=== PATIENT | female | born 1995 | race Caucasian/White ===

== ENCOUNTER 2018-05-07 11:44 | Emergency (ER) | payer SELFPAY ==
[2018-05-07 12:05] VITALS: BP 113/98
--- NOTE | 2018-05-07 13:28 | UC ---
Jericho Spangler Stephanie, [facility] on 05/07/18 at 1315 . General HPI - HPI Summary HPI Summary: In Room Note: The pt is a 22 y/o F presenting to with c/o vomiting since . Symptoms include nausea, diaphoresis and heart burn. The pt denies fever, abd pain and diarrhea. The pt denies past hospitalization. MD Note: Vital signs stable. Afebrile, pulse ox 100. Visit hx non-contributory, on no medications, allergic to penicillin. Nurse Note: Symptoms began last night. Vomiting, sweats, heartburn. Temp this AM 96.5 as stated by patient. - History of Current Complaint Chief Complaint: UCGI Stated Complaint: VOMITING Time Seen by Provider: 05/07/18 12:57 Hx Obtained From: Patient Hx Last Menstrual Period: 05/03/18 Onset/Duration: Sudden Onset, Lasting Days - 1, Resolved Current Severity: Mild Pain Intensity: 0 Associated Signs & Symptoms: Positive: Diaphoresis, Nausea, Vomiting, Other - heartburn. Negative: Abdominal Pain, Diarrhea, Fever - Allergy/Home Medications Allergies/Adverse Reactions: Allergies Allergy/AdvReac Type Severity Reaction Status Date / Time Penicillins Allergy See Comment Verified 05/07/18 12:06 PMH/Surg Hx/FS Hx/Imm Hx Previously Healthy: Yes - Denies reflux. Other History Of: Negative For: HIV, Hepatitis B, Hepatitis C, Anticoagulant Therapy - Surgical History Surgical History: Yes Surgery Procedure, Year, and Place: Bilat ear surgeries withh tubes and plates. - Family History Known Family History: Positive: Hypertension, Diabetes Negative: Blood Disorder - Social History Occupation: Employed Part-time Lives: With Family Alcohol Use: Occasionally Substance Use Type: None Smoking Status (MU): Never Smoked Tobacco Have You Smoked in the Last Year: No Review of Systems Constitutional: Negative Skin: Other - diaphoresis Eyes: Negative ENT: Negative Respiratory: Negative Cardiovascular: Other - heartburn Gastrointestinal: Vomiting, Nausea Genitourinary: Negative Motor: Negative Neurovascular: Negative Musculoskeletal: Negative Neurological: Negative Psychological: Negative All Other Systems Reviewed And Are Negative: Yes Physical Exam - Summary Physical Exam Summary: Appearance: The patient is well-appearing, is in no pain distress, and is OBESE , COMFORTABLE Eyes: Conjunctiva are clear. ENT: The hearing is grossly normal, the pharynx is normal, and the TMs are normal. There is no muffled or hoarse voice. Neck: The neck is supple and there is no lymphadenopathy. Respiratory: The chest is nontender. RESPIRATORY CLEAR, there are normal breath sounds, and there is no respiratory distress. Cardiovascular: Heart is REGULAR RATE AND RHYTHM. There is no murmur. Abdomen: The abdomen is soft and nontender. There is no organomegaly. NEGATIVE CVA TENDERNESS Bowel sounds: PRESENT Musculoskeletal: Strength is intact. The patient moves all extremities. Neurological: The patient is alert. Psychological: The patient displays age appropriate behavior Skin: Negative for rashes. Triage Information Reviewed: Yes Vital Signs: Initial Vital Signs Temp 96.2 F 05/07/18 11:57 Pulse 94 05/07/18 11:57 Resp 18 05/07/18 11:57 BP 113/98 05/07/18 11:57 Pulse Ox 100 05/07/18 11:57 Vital Signs Reviewed: Yes Course/Dx - Course Course Of Treatment: Medications have been included in the original chart and reviewed. Patient is a relatively female who is obese, who has been suffering from heartburn and intermittent nausea and vomiting. Denies temperature or diarrhea. Examination is essentially normal. She has no abdominal pain. I treated. The differential is unclear. It may be a food reaction or a virus. It's possible that this is an environmental exposure although I doubt it. The patient has been instructed to simplify her diet today, take an antacid and sleep with her bed elevated, and take diphenhydramine for nausea. She knows that this may make her sleepy. She will call her doctor tomorrow for further evaluation as needed. - Differential Dx - Multi-Symptom Differential Diagnoses: Other - GERD Provider Diagnoses: Nausea/vomiting: unclear etiology. GERD, transient Discharge - Sign-Out/Discharge Documenting (check all that apply): Discharge/Admit/Transfer - Discharge Plan Condition: Stable Disposition: HOME Patient Education Materials: Antacid, Calcium Containing (By mouth), Gastroesophageal Reflux Disease (ED), Acute Nausea and Vomiting (ED) Referrals: Devante Gilmore MD [Primary Care Provider] - Additional Instructions: PLEASE SEEK CARE AT THE EMERGENCY DEPARTMENT IF SYMPTOMS WORSEN OR IF NEW SYMPTOMS DEVELOP. FOLLOW UP WITH YOUR PRIMARY CARE PHYSICIAN. As we discussed, this may be a virus causing her nausea. He also appeared to have too much acid in your esophagus. For the heartburn, if it happens again, take Mylanta. Sleep with your bed slightly elevated tonight. For the nausea and vomiting, simplify your diet over the next 1-2 days. No fried foods or dairy products. Code the drugstore and get Benadryl. Take 25 mg to 50 mg of Benadryl if you're feeling nauseous. This will make you sleepy. Go to the emergency department if you develop any abdominal pain or become dehydrated. Follow-up with your doctor tomorrow for further evaluation and treatment of heartburn, and intermittent nausea. - Billing Disposition and Condition Condition: STABLE Disposition: Home The documentation as recorded by the Jericho day Stephanie accurately reflects the service I personally performed and the decisions made by me, Vadim Main MD.
== END 2018-05-07 13:31 | disposition home or self-care (01) ==
LOC: UCEAST 11:44
DX: R11.2 Nausea with vomiting, unspecified (principal); K21.9 Gastro-esophageal reflux disease without esophagitis; R61 Generalized hyperhidrosis; Z88.0 Allergy status to penicillin; Z82.49 Family history of ischemic heart disease and other diseases of the circulatory system; Z83.3 Family history of diabetes mellitus
CPT/HCPCS: 99211; G0463

== ENCOUNTER 2019-03-03 17:20 | Emergency (ER) | payer SELFPAY ==
[2019-03-03 17:42] VITALS: BP 140/85
--- NOTE | 2019-03-03 18:11 | UC ---
Respiratory Complaint HPI - HPI Summary HPI Summary: C/O cough with wheezing x 4 days. Congestion with bilateral maxillary sinus pain. Ear pain as well. - History of Current Complaint Chief Complaint: UCRespiratory Stated Complaint: COUGH Hx Obtained From: Patient Hx Last Menstrual Period: 03/05/19 ?: No Onset/Duration: Sudden Onset, Lasting Days - 4, Worse Since - onset Severity Initially: Mild Severity Currently: Moderate Pain Intensity: 8 Character: Cough: Nonproductive Aggravating Factors: Deep Breaths, Recumbent Position Alleviating Factors: Nothing Associated Signs And Symptoms: Positive: Fever, Chills, Wheezing, URI, Nasal Congestion, Sinus Discomfort - Allergies/Home Medications Allergies/Adverse Reactions: Allergies Allergy/AdvReac Type Severity Reaction Status Date / Time Penicillins Allergy See Comment Verified 03/03/19 17:42 Home Medications: Home Medications Ibuprofen TAB* [Motrin TAB* 400 MG] 400 mg PO Q6HR PRN 03/03/19 [History Confirmed 03/03/19] PMH/Surg Hx/FS Hx/Imm Hx Previously Healthy: Yes Other History Of: Negative For: HIV, Hepatitis B, Hepatitis C, Anticoagulant Therapy - Surgical History Surgical History: Yes Surgery Procedure, Year, and Place: Bilat ear surgeries withh tubes and plates. - Family History Known Family History: Positive: Hypertension, Diabetes Negative: Cardiac Disease, Blood Disorder - Social History Occupation: Unemployed Lives: With Family Alcohol Use: Occasionally Substance Use Type: None Smoking Status (MU): Never Smoked Tobacco Have You Smoked in the Last Year: No Review of Systems All Other Systems Reviewed And Are Negative: Yes Constitutional: Positive: Fever, Chills, Fatigue ENT: Positive: Sore Throat, Nasal Discharge, Sinus Pain/Tenderness Respiratory: Positive: Shortness Of Breath, Cough Is Patient Immunocompromised?: No Physical Exam Triage Information Reviewed: Yes Appearance: No Pain Distress, Ill-Appearing, Obese Vital Signs: Initial Vital Signs Temp 98.2 F 03/03/19 17:37 Pulse 86 03/03/19 17:37 Resp 16 03/03/19 17:37 BP 140/85 03/03/19 17:37 Pulse Ox 98 03/03/19 17:37 Vital Signs Reviewed: Yes Eyes: Positive: Conjunctiva Clear ENT: Positive: Pharynx normal, Nasal congestion. Negative: TMs normal - left retracted. right obstructed by wax. Neck exam: Normal Respiratory: Positive: Wheezing - end inspiratory and expiratory wheezes. Cardiovascular Exam: Normal Musculoskeletal Exam: Normal Neurological Exam: Normal Psychological Exam: Normal Skin Exam: Normal Respiratory Course/Dx - Differential Dx/Diagnosis Differential Diagnosis/HQI/PQRI: Asthma, Lower Resp Infection, Sinusitis Provider Diagnosis: Upper respiratory infection with cough and congestion, Sinusitis, Bronchospasm , acute, Elevated blood pressure reading Discharge - Sign-Out/Discharge Documenting (check all that apply): Patient Departure All imaging exams completed and their final reports reviewed: No Studies - Discharge Plan Condition: Stable Disposition: HOME Prescriptions: Albuterol HFA INHALER* [Ventolin HFA Inhaler*] 2 puff INH Q4H PRN #1 mdi PRN Reason: Wheezing Amoxicillin PO (*) [Amoxicillin 875 MG (*)] 875 mg PO BID #20 tab predniSONE TAB* [Deltasone 20 MG TAB*] 60 mg PO DAILY #18 tab Patient Education Materials: Upper Respiratory Infection (ED), Wheezing (ED), Sinusitis (ED), Amoxicillin (By mouth), Prednisone (By mouth) Referrals: Devante Gilmore MD [Primary Care Provider] - Additional Instructions: NASAL SPRAYS AND DROPS: Afrin in the PUMP/ MIST bottle (Get generic 12 hours nasal decongestant spray). Tilt your head down and look at the floor while doing a strong sniff with the spray. Decongestant nasal sprays and drops often give dramatic relief from congestion. They are often recommended for patients with sinus infection to assist with sinus drainage. Persons with high blood pressure should consult the doctor before using these nasal sprays. Afrin and Conor-Synephrine are common [id number] preparations. They should not be used for more than five days, as "rebound" congestion can occur - - the congestion flares as the drug wears off. A way of dealing with this rebound congestion problem is to medicate only one nostril each time, allowing the other nostril to recover from the medicine' s effects. When you no longer need the drug during the day, spray only one nostril each night. This helps you sleep well without severe rebound congestion. Call the doctor if you develop severe headache, palpitations, or chest pain. - Billing Disposition and Condition Condition: STABLE Disposition: Home
== END 2019-03-03 18:29 | disposition home or self-care (01) ==
LOC: UCEAST 17:20
DX: J01.90 Acute sinusitis, unspecified (principal); R05 Cough; R09.81 Nasal congestion; J98.01 Acute bronchospasm; R03.0 Elevated blood-pressure reading, without diagnosis of hypertension; H92.09 Otalgia, unspecified ear; H61.21 Impacted cerumen, right ear; Z88.0 Allergy status to penicillin
CPT/HCPCS: 99212; G0463

== ENCOUNTER 2019-03-18 17:08 | Emergency (ER) | payer SELFPAY ==
--- NOTE | 2019-03-18 18:22 | UC ---
Complaint Female HPI - HPI Summary HPI Summary: ONSET OF LEFT FLANK PAIN THIS MORNING. WORSE WITH MOVEMENT AND COUGH. ONLY MILDLY PLEURITIC. NO FEVER, NAUSEA/VOMITING. NO CP OR SOB. WAS SEEN IN UC ABOUT 2 WEEKS AGO 03/03/19 AND TREATED FOR RESPIRATORY ILLNESS WITH AMOXICILLIN, PREDNISONE AND ALBUTEROL. STATES SHE STILL HAS A SLIGHT LINGERING COUGH. HAD 1 DAY LEFT OF AMOXICILLIN WHICH SHE DID NOT FINISH INITIALLY. SAID SHE TOOK A DOSE THIS MORNING. DENIES ANY URINARY SYMPTOMS. - History Of Current Complaint Chief Complaint: UCRespiratory Stated Complaint: SIDE PAIN, AND COUGH Time Seen by Provider: 03/18/19 17:16 Hx Obtained From: Patient Hx Last Menstrual Period: 1 week ago Onset/Duration: Sudden Onset, Lasting Hours, Still Present Timing: Constant Severity Initially: Moderate Severity Currently: Moderate Pain Intensity: 5 Pain Scale Used: 0-10 Numeric Character: Sharp Aggravating Factor(s): Movement, Coughing Alleviating Factor(s): Position Associated Signs And Symptoms: Positive: Back Pain. Negative: Fever, Nausea, Vomiting(# Of Episodes =) - Allergies/Home Medications Allergies/Adverse Reactions: Allergies Allergy/AdvReac Type Severity Reaction Status Date / Time Penicillins Allergy See Comment Verified 03/18/19 17:19 PMH/Surg Hx/FS Hx/Imm Hx Previously Healthy: Yes Other History Of: Negative For: HIV, Hepatitis B, Hepatitis C, Anticoagulant Therapy - Surgical History Surgical History: Yes Surgery Procedure, Year, and Place: Bilat ear surgeries withh tubes and plates. - Family History Known Family History: Positive: Hypertension, Diabetes Negative: Cardiac Disease, Blood Disorder - Social History Alcohol Use: Occasionally Substance Use Type: None Smoking Status (MU): Never Smoked Tobacco Have You Smoked in the Last Year: No Review of Systems All Other Systems Reviewed And Are Negative: Yes Constitutional: Positive: Negative Respiratory: Positive: Cough Cardiovascular: Positive: Negative Gastrointestinal: Positive: Negative Genitourinary: Positive: Other - LEFT FLANK PAIN. Negative: Dysuria, Frequency , Urgency Physical Exam Triage Information Reviewed: Yes Appearance: Well-Appearing, No Pain Distress, Well-Nourished Vital Signs: Initial Vital Signs Temp 96.9 F 03/18/19 17:14 Pulse 106 03/18/19 17:14 Resp 17 03/18/19 17:14 BP 139/88 03/18/19 17:14 Pulse Ox 97 03/18/19 17:14 Laboratory Tests 03/18/19 18:06 POC Urine Color Dark yellow POC Urine Clarity Slightly cloudy POC Urine pH 5.5 POC Ur Specif Ely 1.025 POC Urine Protein Trace A POC Ur Glucose (UA) Negative POC Urine Ketones Negative POC Urine Blood 3+ A POC Urine Nitrite Negative POC Urine Bilirubin Negative POC Urine Urobilinogen 0.2 POC U Leukocyte Esteras Trace A Vital Signs Reviewed: Yes Eyes: Positive: Conjunctiva Clear ENT: Positive: Hearing grossly normal Neck: Positive: Supple, Nontender, No Lymphadenopathy Respiratory Exam: Normal Cardiovascular Exam: Normal Abdomen Description: Positive: Nontender, Soft. Negative: CVA Tenderness (R), CVA Tenderness (L), Distended, Guarding Musculoskeletal: Positive: No Edema Neurological: Positive: Alert Psychological: Positive: Age Appropriate Behavior Skin: Negative: Rashes Diagnostics - Radiology CXR Radiology Interpretation Completed By: Radiologist Summary of Radiographic Findings: No active cardiopulmonary disease is noted. CT ABD/PELVIS W/O CONTRAST Radiology Interpretation Completed By: ED Physician Summary of Radiographic Findings: NO OBVIOUS STONE. RADIOLOGY READ PENDING Complaint Female Dx - Course Course Of Treatment: PATIENT WITH MILD COUGH AND LEFT FLANK PAIN. SYMPTOMS MAY BE DUE TO ACUTE MUSCLE STRAIN. ADVISED OTC MEDICATIONS, REST, STRETCH, HEAT NEEDED. CHEST X -RAY TODAY UNREMARKABLE. URINALYSIS REVEALED 3+ BLOOD. PATIENT FINISHED HER MENSES ABOUT 2 DAYS AGO. DISCUSSED POSSIBILITY OF MICROSCOPIC HEMATURIA FROM TAIL END OF MENSES VERSUS POSSIBLE KIDNEY STONE GIVEN LEFT FLANK PAIN. PATIENT OPTED FOR CT ABDOMEN/PELVIS TODAY. NO CLEAR STONE ON MY INITIAL INTERPRETATION. RADIOLOGY READ PENDING. PATIENT WILL HYDRATE WELL AND TAKE OTC MEDICATIONS NEEDED FOR PAIN. WILL GO TO THE [facility] ER WITHOUT FAIL IF SHE DEVELOPS WORSENING PAIN, FEVER, NAUSEA/VOMITING, MARIA FERNANDA BLOOD IN THE URINE OR ANY OTHER CONCERNING SYMPTOMS. WILL CALL PT [facility] WITH RADIOLOGY REPORT. - Differential Dx/Diagnosis Provider Diagnosis: Left flank pain Discharge - Sign-Out/Discharge Documenting (check all that apply): Patient Departure All imaging exams completed and their final reports reviewed: No - Discharge Plan Condition: Stable Disposition: HOME Patient Education Materials: Flank Pain (ED) Referrals: Devante Gilmore MD [Primary Care Provider] - If Needed Additional Instructions: YOUR FLANK PAIN MAY BE DUE TO A MUSCLE STRAIN GIVEN YOUR RECENT COUGH AND URI SYMPTOMS. RECOMMEND REST, STRETCH, HEAT AND OTC MEDICATIONS NEEDED FOR DISCOMFORT. CHEST X-RAY TODAY WAS UNREMARKABLE. GIVEN YOUR LEFT FLANK PAIN AND MICROSCOPIC HEMATURIA CT SCAN WAS DONE. RADIOLOGY REPORT PENDING. WE WILL CALL YOU LATER TODAY WITH THE REPORT. STAY WELL HYDRATED. GO TO THE ER WITHOUT FAIL IF YOU DEVELOP WORSENING PAIN, NAUSEA/VOMITING, MARIA FERNANDA BLOOD IN THE URINE, FEVER OR ANY OTHER CONCERNING SYMPTOMS. FOR HELP WITH APPLYING FOR INSURANCE COVERAGE CONTACT AN INSURANCE NAVIGATOR AT THE [facility] OR [address] [phone] [email or web address] WALK IN HOURS TUESDAY 2P-6P TUESDAY 4P-8P [address] - Billing Disposition and Condition Condition: STABLE Disposition: Home
[2019-03-18 19:07] VITALS: BP 129/78
--- NOTE | 2019-03-18 20:41 | UC ---
- Progress Note Progress Note: RADIOLOGY REPORT REVIEWED. 1. Multiple prominent mesenteric lymph nodes, particularly in the left upper quadrant of the abdomen, which are nonspecific and may be due to infectious or inflammatory mild enteritis. 2. No nephrolithiasis or hydronephrosis. 3. A small hiatal hernia. 4. Moderate fecal load. 5. Hepatosplenomegaly. I CALLED THE PT. NAME AND VERIFIED. ADVISED OF ABOVE FINDINGS AND RECOMMENDED PT GO DIRECTLY TO [place] [facility] [place] FOR FURTHER EVALUATION. SHE STATES SHE WILL GO. Course/Dx - Diagnoses Provider Diagnoses: Left flank pain Discharge - Sign-Out/Discharge Documenting (check all that apply): Post-Discharge Follow Up All imaging exams completed and their final reports reviewed: Yes - Discharge Plan Condition: Stable Disposition: HOME Patient Education Materials: Flank Pain (ED) Referrals: Devante Gilmore MD [Primary Care Provider] - If Needed Additional Instructions: YOUR FLANK PAIN MAY BE DUE TO A MUSCLE STRAIN GIVEN YOUR RECENT COUGH AND URI SYMPTOMS. RECOMMEND REST, STRETCH, HEAT AND OTC MEDICATIONS NEEDED FOR DISCOMFORT. CHEST X-RAY TODAY WAS UNREMARKABLE. GIVEN YOUR LEFT FLANK PAIN AND MICROSCOPIC HEMATURIA CT SCAN WAS DONE. RADIOLOGY REPORT PENDING. WE WILL CALL YOU LATER TODAY WITH THE REPORT. STAY WELL HYDRATED. GO TO THE ER WITHOUT FAIL IF YOU DEVELOP WORSENING PAIN, NAUSEA/VOMITING, MARIA FERNANDA BLOOD IN THE URINE, FEVER OR ANY OTHER CONCERNING SYMPTOMS. FOR HELP WITH APPLYING FOR INSURANCE COVERAGE CONTACT AN INSURANCE NAVIGATOR AT THE [facility] OR [address] [phone] [email or web address] WALK IN HOURS TUESDAY 2P-6P TUESDAY 4P-8P [address] - Billing Disposition and Condition Condition: STABLE Disposition: Home
== END 2019-03-18 19:12 | disposition home or self-care (01) ==
LOC: UCEAST 17:08
DX: M54.5 Low back pain (principal); R07.1 Chest pain on breathing; R05 Cough; R31.9 Hematuria, unspecified; I88.0 Nonspecific mesenteric lymphadenitis; K44.9 Diaphragmatic hernia without obstruction or gangrene; K56.41 Fecal impaction; R16.2 Hepatomegaly with splenomegaly, not elsewhere classified; Z88.0 Allergy status to penicillin
CPT/HCPCS: 71046; 74176; 81003; 87086; 99211; G0463

== ENCOUNTER 2019-03-19 19:54 | Emergency (ER) | payer SELFPAY ==
--- NOTE | 2019-03-19 21:03 | ED ---
GI/ HPI - HPI Summary HPI Summary: 23-year-old female presents with left flank pain for the past couple days. she has also had a cough. She denies any urinary symptoms. denies any hematuria. No chest pain or shortness of breath. Denies any sore throat. No fevers. No nausea or vomiting. Has no medical conditions. was seen at yesterday and had normal urine, chest xray normal and a CT that showed lymph nodes in the left upper quadrant. was sent here for lab work. has been taking ibuprofen for pain. no fam hx of blood clots. is not a smoker and not on control. - History of Current Complaint Chief Complaint: EDFlankPain Time Seen by Provider: 03/19/19 20:51 Stated Complaint: PAIN ON LEFT SIDE PER PT Hx Last Menstrual Period: 1 week ago Pain Intensity: 5 - Allergy/Home Medications Allergies/Adverse Reactions: Allergies Allergy/AdvReac Type Severity Reaction Status Date / Time Penicillins Allergy See Comment Verified 03/18/19 17:19 PMH/Surg Hx/FS Hx/Imm Hx Endocrine/Hematology History: Denies: Hx Anticoagulant Therapy, Hx Diabetes, Hx Thyroid Disease Cardiovascular History: Denies: Hx Congestive Heart Failure, Hx Deep Vein Thrombosis, Hx Hypertension , Hx Myocardial Infarction, Hx Pacemaker/ICD Respiratory History: Denies: Hx Asthma, Hx Chronic Obstructive Pulmonary Disease (COPD), Hx Lung Cancer, Hx Pneumonia, Hx Pulmonary Embolism GI History: Denies: Hx Gall Bladder Disease, Hx Gastrointestinal Bleed, Hx Ulcer, Hx Urosepsis History: Denies: Hx Kidney Stones, Hx Renal Disease Neurological History: Denies: Hx Dementia, Hx Migraine, Hx Seizures, Hx Transient Ischemic Attacks (TIA) Psychiatric History: Denies: Hx Anxiety, Hx Depression, Hx Schizophrenia, Hx Bipolar Disorder - Surgical History Surgery Procedure, Year, and Place: Bilat ear surgeries withh tubes and plates. Infectious Disease History: No Infectious Disease History: Denies: Hx Hepatitis, Hx Human Immunodeficiency Virus (HIV), Traveled Outside the [place] in Last 30 Days - Family History Known Family History: Positive: Hypertension, Diabetes Negative: Cardiac Disease, Blood Disorder - Social History Alcohol Use: Occasionally Substance Use Type: Reports: None Hx Tobacco Use: No Smoking Status (MU): Never Smoked Tobacco Have You Smoked in the Last Year: No Review of Systems Negative: Fever Negative: Chest Pain Negative: Shortness Of Breath Negative: Abdominal Pain Positive: flank pain All Other Systems Reviewed And Are Negative: Yes Physical Exam Triage Information Reviewed: Yes Vital Signs On Initial Exam: Initial Vitals Temp Pulse Resp BP Pulse Ox 96.1 F 100 18 136/87 98 03/19/19 19:56 03/19/19 19:56 03/19/19 19:56 03/19/19 19:56 03/19/19 19:56 Vital Signs Reviewed: Yes Appearance: Positive: Well-Appearing Skin: Positive: Warm, Dry Head/Face: Positive: Normal Head/Face Inspection Eyes: Positive: Normal, EOMI, ILIANA, Conjunctiva Clear ENT: Positive: Pharynx normal Respiratory/Lung Sounds: Positive: Clear to Auscultation, Breath Sounds Present Cardiovascular: Positive: Normal, RRR Abdomen Description: Positive: Nontender, Soft, CVA Tenderness (L) Bowel Sounds: Positive: Present Musculoskeletal: Positive: Normal Neurological: Positive: Normal Psychiatric: Positive: Normal Diagnostics - Vital Signs Vital Signs Temp Pulse Resp BP Pulse Ox 03/19/19 19:56 96.1 F 100 18 136/87 98 - Laboratory Result Diagrams: 03/19/19 21:13 03/19/19 21:13 Lab Statement: Any lab studies that have been ordered have been reviewed, and results considered in the medical decision making process. GIGU Course/Dx - Course Course Of Treatment: 23-year-old female presents with left flank pain for the past couple days. she has also had a cough. She denies any urinary symptoms. denies any hematuria. No chest pain or shortness of breath. Denies any sore throat. No fevers. No nausea or vomiting. Has no medical conditions. was seen at yesterday and had normal urine, chest xray normal and a CT that showed lymph nodes in the left upper quadrant. was sent here for lab work. has been taking ibuprofen for pain. On exam tenderness over left flank. has no risk factors for PE. wbc 11. flu negative. crp normal. flu neg. mono neg. strept neg. discussed that lab work is normal. likely reactive lymph nodes due to upper respiratory infection. told to follow up with primary. patient understand and agrees with plan. - Diagnoses Differential Diagnoses - Female: Renal Calculi, Urinary Tract Infection, Other - mono Provider Diagnoses: Flank pain Discharge - Sign-Out/Discharge Documenting (check all that apply): Patient Departure Patient Received Moderate/Deep Sedation with Procedure: No - Discharge Plan Condition: Good Disposition: HOME Patient Education Materials: Flank Pain (ED) Referrals: Devante Gilmore MD [Primary Care Provider] - Additional Instructions: take tyenlol or ibuprofen every 6 hours as needed for pain Apply heat Follow up with primary Return to ED if develop any new or worsening symptoms - Billing Disposition and Condition Condition: GOOD Disposition: Home
[2019-03-19 21:20] LABS: ABS Basophils 0.1 10^3/ul (0-0.2); ABS Eosinophils 0.3 10^3/ul (0-0.6); ABS Lymphocytes 2.6 10^3/ul (1.0-4.8); ABS Monocytes 0.5 10^3/ul (0-0.8); ABS Nucleated RBC 0 10^3/ul; Eosinophil % 2.7 %; Hematocrit 40 % (33-41); Hemoglobin 13.2 g/dL (12.0-16.0); Mean Corpuscular HGB Conc 33 g/dL (31-36); Mean Corpuscular Hemoglobin 30 pg (27-31); Mean Corpuscular Volume 89 fL (80-97); Mean Platelet Volume 6.5 fL (7.4-10.4); Nucleated Red Blood Cells % 0; Platelet Count 296 10^3/uL (150-450); Red Blood Count 4.48 10^6 /uL (3.70-4.87); Red Cell Distribution Width 13 % (10.5-15); White Blood Count 11.5 10^3/uL (3.5-10.8)
[2019-03-19 21:23] LABS: Rapid Strep Molecular Negative (Negative)
[2019-03-19 21:29] LABS: Influenza A Molecular NEGATIVE (Negative); Influenza B Molecular NEGATIVE (Negative)
[2019-03-19 21:40] LABS: ALT 16 U/L (7-52); AST 20 U/L (13-39); Albumin 3.9 g/dL (3.2-5.2); Albumin/Globulin Ratio 1.2 (1-3); Alkaline Phosphatase 55 U/L (34-104); Anion Gap 6 mmol/L (2-11); BUN/Creatinine Ratio 17.7 (8-20); Blood Urea Nitrogen 14 mg/dL (6-24); CO2 Carbon Dioxide 30 mmol/L (22-32); Calcium 9.3 mg/dL (8.6-10.3); Chloride 104 mmol/L (101-111); EGFR African American 110.1 (>60); Globulin 3.2 g/dL (2-4); Glucose 97 mg/dL (70-100); Potassium 4.1 mmol/L (3.5-5.0); Sodium 140 mmol/L (135-145); Total Protein 7.1 g/dL (6.4-8.9)
[2019-03-19 21:46] LABS: HCG Pregnancy < 0.60 mIU/mL
[2019-03-19 22:38] LABS: Urine Appearance Cloudy; Urine Bacteria Absent (Absent); Urine Bilirubin Negative (Negative); Urine Blood 1+ (Negative); Urine Color Yellow; Urine Glucose Negative (Negative); Urine Ketones Negative (Negative); Urine Nitrite Negative (Negative); Urine Protein Negative (Negative); Urine Red Blood Cell Trace(0-2/hpf) (Absent); Urine Specific Gravity 1.016 (1.010-1.030); Urine Squamous Epithelial Cell Present (Absent); Urine Urobilinogen Negative (Negative); Urine White Blood Cell 1+(6-10/hpf) (Absent)
[2019-03-19 23:14] VITALS: BP 159/98
== END 2019-03-19 23:13 | disposition home or self-care (01) ==
LOC: ED 19:54
DX: R10.9 Unspecified abdominal pain (principal); R05 Cough
CPT/HCPCS: 36415; 80053; 81003; 81015; 83690; 84702; 85025; 86308; 87086; 87651; 99282